=== PATIENT | female | born 1990 | race Caucasian/White ===

== ENCOUNTER 2019-10-16 00:14 | Emergency (ER) | payer OTHER ==
[~2019-10-16] VITALS: Ht 157.5 cm; Wt 40.7 kg
[2019-10-16 01:06] LABS: MEAN CORPUSCULAR HGB CONC 33.3 g/dL (32.4-35.8); MEAN PLATELET VOLUME 8.6 fL (7.4-10.4); PLATELET COUNT 349 x10^3/uL (130-400); RED BLOOD COUNT 4.75 x10^6/uL (3.82-5.3); RED CELL DISTRIBUTION WIDTH 13.3 % (9.6-15.2)
[2019-10-16 01:16] LABS: ALBUMIN 3.7 g/dL (3.4-5.0); ANION GAP 6 mmol/L (5-15); CALCIUM 8.7 mg/dL (8.5-10.1); CHLORIDE 104 mmol/L (98-107); SALICYLATE LEVEL 2.7 mg/dL (2.8-20.0)
[2019-10-16 01:19] LABS: ALANINE AMINOTRANSFERASE 20 U/L (12-78); ALKALINE PHOSPHATASE 53 U/L (45-117); BILIRUBIN,TOTAL 0.2 mg/dL (0.2-1.0); CREATININE 0.77 mg/dL (0.55-1.02); TOTAL PROTEIN 7.2 g/dL (6.4-8.2)
[2019-10-16 01:25] LABS: BASOPHILS # (AUTO) 0.11 x10^3/uL (0-0.1); BASOPHILS % (AUTO) 1 % (0-1); EOSINOPHILS # (AUTO) 0.14 x10^3/uL (0-0.4); EOSINOPHILS % (AUTO) 1 % (1-7); LYMPHOCYTES # (AUTO) 2.36 x10^3/uL (1-3.4); LYMPHOCYTES % (AUTO) 17 % (22-44); MD SCAN; MONOCYTES # (AUTO) 1.46 x10^3/uL (0.2-0.8); MONOCYTES % (AUTO) 11 % (2-9); NEUTROPHILS # (AUTO) 9.89 x10^3/uL (1.8-6.8); NEUTROPHILS % (AUTO) 71 % (42-75)
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
--- NOTE | 2019-10-16 02:38 | NUR ---
Telepsych called and request for new consult was made. Camera [id number] is placed in patients room.
[2019-10-16 02:49] LABS: AMPHETAMINE SCREEN, URINE Positive (Negative); BARBITURATE SCREEN, URINE Negative (Negative); BENZODIAZEPINE SCREEN, URINE Negative (Negative); CANNABINOID SCREEN, URINE Negative (Negative); COCAINE SCREEN, URINE Negative (Negative); METHADONE SCREEN, URINE Negative (Negative); OPIATE SCREEN, URINE Negative (Negative)
--- NOTE | 2019-10-16 02:49 | NUR ---
PATIENT RESTING IN BED, NO NOTED NEEDS AT THIS TIME. EVEN-UNLABORED RESPIRATIONS NOTED. SITTER WITHIN VIEW OF PATIENT. WILL CONTINUE TO MONITOR.
--- NOTE | 2019-10-16 03:15 | NUR ---
PATIENT COMPLETED INTERVIEW WITH TELEPSYCH. PROVIDER WILL CONTACT HOSPITAL FOR FURTHER PLAN OF CARE.
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
[2019-10-16] MEDS ORDERED: ZIPRASIDONE 20 MG INJ IM ONE (03:30)
--- NOTE | 2019-10-16 06:17 | NUR ---
PATIENT MOVED TO ROOM ONE, TOLERATED WELL. BELONGINGS MOVED TO BIN FOR ROOM ONE. PATIENT GIVEN SHOES. PATIENT DISPLEASED THAT BELONGINGS WOULD NOT BE IN THE ROOM WITH HER IN HER NEW ROOM. PATIENT UPDATED ON PLAN OF CARE. NO NOTED FURTHER NEEDS AT THIS TIME. IN VIEW OF SITTER.
--- NOTE | 2019-10-16 06:36 | NUR ---
PATIENT RESTING IN BED, NO NOTED NEEDS. SITTER WITHIN VIEW OF PATIENT. WILL CONTINUE TO MONITOR.
--- NOTE | 2019-10-16 06:45 | NUR ---
REPORT GIVEN TO CARLA REEDER
--- NOTE | 2019-10-16 06:56 | NUR ---
report received from danae holden.
--- NOTE | 2019-10-16 06:58 | NUR ---
meal tray ordered at this time.
--- NOTE | 2019-10-16 07:55 | NUR ---
hospital bed ordered from housekeeping at this time.
--- NOTE | 2019-10-16 08:02 | NUR ---
meal tray provided at this time.
--- NOTE | 2019-10-16 08:06 | NUR ---
hospital bed is outside of pt's room at this time. pt sleeping in gurney. resps even and unlabored.
--- NOTE | 2019-10-16 08:15 | NUR ---
hospital bed in room.
--- NOTE | 2019-10-16 09:15 | NUR ---
pt sleeping in hospital bed. resps even and unlabored. sitter monitoring from hallway for safety. room remains secure.
--- NOTE | 2019-10-16 10:00 | NUR ---
PT SLEEPING IN HOSPITAL BED. RESPS EVEN AND UNLABORED. SITTER MONITORING FROM HALLWAY FOR SAFETY. ROOM REMAINS SECURE.
--- NOTE | 2019-10-16 11:16 | NUR ---
DIET TRAY ORDERED AT THIS TIME.
--- NOTE | 2019-10-16 12:01 | NUR ---
MEAL TRAY PROVIDED AT THIS TIME.
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
--- NOTE | 2019-10-16 13:09 | NUR ---
PT SLEEPING IN HOSPITAL BED. RESPS EVEN AND UNLABORED. SITTER MONITORING FROM HALLWAY FOR SAFETY. ROOM REMAINS SECURE.
--- NOTE | 2019-10-16 13:44 | NUR ---
[employer] AT BEDSIDE AT THIS TIME.
--- NOTE | 2019-10-16 14:40 | NUR ---
PT SLEEPING IN HOSPITAL BED. RESPS EVEN AND UNLABORED. SITTER MONITORING FROM HALLWAY FOR SAFETY. ROOM REMAINS SECURE.
--- NOTE | 2019-10-16 15:25 | NUR ---
PT SLEEPING IN HOSPITAL BED. RESPS EVEN AND UNLABORED. SITTER MONITORING FROM HALLWAY FOR SAFETY. ROOM REMAINS SECURE.
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
--- NOTE | 2019-10-16 16:59 | NUR ---
MEAL TRAY ORDERED AT THIS TIME.
--- NOTE | 2019-10-16 17:25 | NUR ---
PELVIC EXAM DONE AT BEDSIDE BY EDMD AT THIS TIME. PT TOLERATED WELL.
[2019-10-16] MEDS ORDERED: CEFTRIAXONE 250 MG IM ONE (17:30)
[2019-10-16] MEDS ORDERED: metroNIDAZOLE 500 MG TABLET PO ONE (17:30)
[2019-10-16] MEDS ORDERED: NICOTINE 14MG/24 HR PATCH.TD24 TD ONE (17:30)
[2019-10-16] MEDS ORDERED: AZITHROMYCIN 500 MG TABLET PO ONE (17:30)
[2019-10-16] MEDS ORDERED: CEFTRIAXONE 250 MG ONE (17:34)
[2019-10-16] MEDS ORDERED: metroNIDAZOLE 500 MG TABLET ONE (17:34)
[2019-10-16] MEDS ORDERED: AZITHROMYCIN 250 MG TABLET ONE (17:34)
[2019-10-16] MEDS ORDERED: NICOTINE 14MG/24 HR PATCH.TD24 ONE (17:34)
--- NOTE | 2019-10-16 17:47 | NUR ---
PT MEDICATED PER EMAR. PT TOLERATED WELL. PT'S AOX4. RESPS EVEN AND UNLABORED.
--- NOTE | 2019-10-16 18:04 | NUR ---
DINNER TRAY PROVIDED AT THIS TIME.
--- NOTE | 2019-10-16 18:13 | NUR ---
PT STATED"I CAN'T EAT TUNA, PLEASE GIVE ME PASTRAMI SANDWICH." THIS RN RE-ORDERED HER DIET TRAY. THIS RN CALLED DIET OFFICE X 3. NO ANSWER.
--- NOTE | 2019-10-16 18:46 | NUR ---
BS report from Tammie RN, pt care transferred to this RN at this time.
--- NOTE | 2019-10-16 18:50 | NUR ---
REPORT GIVEN TO FELIPE AGUIRRE.
--- NOTE | 2019-10-16 18:55 | NUR ---
RN FIRST CONTACT WITH PT: PT LAYING IN HOSPITAL BED, APPEARS COMFORTABLE, BLANKETS COVERING BODY, LIGHTS DIMMED FOR COMFORT, FCS NO SOB WHEN SPEAKING, NAD, PERCOLLEEN INTACT, MAEx4. WCTM. PT UPDATED THAT NEW MEAL TRAY IS CURRENTLY BEING MADE.
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
--- NOTE | 2019-10-16 20:07 | NUR ---
ALEX RN: PACKET FAXED TO [facility]
--- NOTE | 2019-10-16 20:45 | NUR ---
LATE ENTRY: PT RESTING ON HOSPITAL BED, NO CHANGE IN CONDITION, NAD, LIGHTS OFF FOR COMFORT, EYES CLOSED, WCTM. SITTER IN LINE OF SIGHT.
--- NOTE | 2019-10-16 21:51 | NUR ---
PT RESTING ON HOSPITAL BED, NO CHANGE IN CONDITION, NAD, EYES CLOSED, WCTM. SITTER IN LINE OF SIGHT.
--- NOTE | 2019-10-16 22:59 | NUR ---
PT RESTING ON HOSPITAL BED, NO CHANGE IN CONDITION, NAD, EYES CLOSED, WCTM. SITTER IN LINE OF SIGHT.
--- NOTE | 2019-10-17 00:03 | NUR ---
PT RESTING ON HOSPITAL BED, FIDGETING AROUND WHILE LAYING ON SIDE, RESP WNL, EQUAL AND BILATERAL CHEST RISE AND FALL. SITTER IN LINE OF SIGHT. WCTM.
--- NOTE | 2019-10-17 01:02 | NUR ---
pt laying in hospital bed, fidgeting around, pt states "im super anxious and i think im supposed to get some pills." When ask what shes supposed to receive, pt states "it was whatever they gave me earlier." RN explained to pt that she received antibiotics earlier and that they dont do anything for anxiety. pt then requesting anxiety meds. sitter in line of sight, DAMIR PAYNE.
--- NOTE | 2019-10-17 01:05 | NUR ---
PT BECOMING INCREASINGLY AGGITATED AND FIDGETTING. PT STATES "I NEED SOMETHING FOR HOW I FEEL." PT UNABLE TO FALL BACK TO SLEEP AT THIS TIME. RN TO MEDICATE PT PER JUN. ROCHELLE IN LINE OF SIGHT, DAMIR.
[2019-10-17] MEDS ORDERED: ZIPRASIDONE 20 MG INJ IM ONE (01:10)
--- NOTE | 2019-10-17 01:56 | NUR ---
PT ROLLED OVER ONTO SIDE FACING AWAY FROM RN, RESP HEARD AND CHEST RISE AND FALL SEEN. PT APPEARS TO BE ASLEEP, SKIN COLOR P/W/D. WCTM. SITTER IN LINE OF SIGHT.
--- NOTE | 2019-10-17 02:34 | NUR ---
PT RESTING ON HOSPITAL BED, NO CHANGE IN CONDITION, RESP HEARD AND EVEN CHEST RISE AND FALL, NAD, EYES CLOSED, WCTM. SITTER IN LINE OF SIGHT.
--- NOTE | 2019-10-17 03:18 | NUR ---
PT CONDITION UNCHANGED. SITTER IN LINE OF SIGHT. WCTM.
--- NOTE | 2019-10-17 04:29 | NUR ---
PT RESTING ON HOSPITAL BED, EYES CLOSED, CONDITION UNCHANGED. SITTER IN LINE OF SIGHT. WCTM.
--- NOTE | 2019-10-17 05:24 | NUR ---
PT RESTING ON HOSPITAL BED, EYES CLOSED, CONDITION UNCHANGED. SITTER IN LINE OF SIGHT. WCTM. BREAKFAST TRAY ORDERED.
--- NOTE | 2019-10-17 06:46 | NUR ---
PT RESTING IN HOSPITAL BED, EYES CLOSED, NAD, CHEST RISE AND FALL EQUAL AND BILATERAL, RESP HEARD. SITTER WITHIN LINE OF SIGHT. BS REPORT TO HUEY AGUIRRE.
--- NOTE | 2019-10-17 07:14 | NUR ---
PT RESTING CALMLY IN HOSPITAL BED. SITTER AT DOOR
--- NOTE | 2019-10-17 08:01 | NUR ---
TASK RN: PT GIVEN BREAKFAST TRAY, PT STATES SHE FEELS BETTER BUT "TIRED" THIS AM. VS UPDATED. SITTER AT BEDSIDE.
--- NOTE | 2019-10-17 09:26 | NUR ---
PT RESTING CALMLY IN BED. NO STATED NEEDS AT THIS TIME. SITTER AT DOOR.
--- NOTE | 2019-10-17 10:50 | NUR ---
PT RESTING CALMLY IN BED WITH EYES CLOSED. NO STATED NEEDS AT THIS TIME. WILL CONTINUE TO MONITOR. SITTER AT DOOR.
--- NOTE | 2019-10-17 11:30 | NUR ---
PT RESTING CALMLY IN BED WITH EYES CLOSED. NO STATED NEEDS AT THIS TIME. LUNCH TRAY ORDERED. SITTER AT DOOR FOR FREQUENT OBS.
--- NOTE | 2019-10-17 12:10 | NUR ---
Safetty Meal tray provided to patient.
[2019-10-17] MEDS ORDERED: NICOTINE 14MG/24 HR PATCH.TD24 ONE (12:38)
--- NOTE | 2019-10-17 12:58 | NUR ---
BREAK RN NOTE: PT RESTING ON HOSPITAL BED, CONVERSING WITH PSYCH LEORA BARAJAS AT THIS TIME. SITTER MONITORING FROM [facility] FOR SAFETY, ROOM SECURE.
--- NOTE | 2019-10-17 13:16 | NUR ---
Per Psych LEORA Long, legal hold is to be removed and pt is to be discharged. [employer] instructed RN to allow pt to call her mother who will pick her up. pt is a&o, calm and cooperative. pt denies si/hi. pt up to phone with sitter at this time to call mother.
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
[2019-10-17 14:18] VITALS: BP 111/71
== END 2019-10-17 14:21 | disposition home or self-care (01) ==
LOC: ED 01:13
DX: F15.150 Other stimulant abuse with stimulant-induced psychotic disorder with delusions (principal); T19.2XXA Foreign body in vulva and vagina, initial encounter; F33.3 Major depressive disorder, recurrent, severe with psychotic symptoms; F41.9 Anxiety disorder, unspecified; X58.XXXA Exposure to other specified factors, initial encounter; Y93.89 Activity, other specified; Y92.89 Other specified places as the place of occurrence of the external cause; Y99.8 Other external cause status
CPT/HCPCS: 36415; 80053; 80307; 84703; 85025; 96372; 99285; J0696; J3486